=== PATIENT | male | born 1990 | race Caucasian/White ===

== ENCOUNTER 2022-04-23 12:55 | Emergency (ER) | payer BC ==
[~2022-04-23] VITALS: Ht 165.1 cm; Wt 91.0 kg
[2022-04-23 13:50] VITALS: BP 161/88
[2022-04-23] MEDS: IBUPROFEN 400MG TABLET PO ONE (13:50)
[2022-04-23] MEDS: ACETAMINOPHEN 325MG TABLET PO ONE (13:50)
[2022-04-23] MEDS: TETANUS, DIPHTHERIA, PERTUSSIS VAC/PF 0.5ML (>10YR OLD) IM ONE (14:16)
[2022-04-23] MEDS: LIDOCAINE HCL/PF 1% 10 MG/ML 5ML VIAL INFIL ONE (14:17)
[2022-04-23] MEDS ORDERED: CEFAZOLIN SODIUM 1000MG/VIAL IM ONE (18:15)
[2022-04-23] MEDS ORDERED: CEPH500C2 MT (18:28)
[2022-04-23] MEDS ORDERED: IBUP-2028 MT (18:28)
[2022-04-23] MEDS ORDERED: ACET-2708 MT (18:28)
== END 2022-04-23 18:47 | disposition home or self-care (01) ==
LOC: ER 12:55
DX: S67.193A Crushing injury of left middle finger, initial encounter (principal); S67.42XA Crushing injury of left wrist and hand, initial encounter; S62.603A Fracture of unspecified phalanx of left middle finger, initial encounter for closed fracture; X58.XXXA Exposure to other specified factors, initial encounter; Y93.89 Activity, other specified; Y92.89 Other specified places as the place of occurrence of the external cause; Y99.8 Other external cause status
CPT/HCPCS: 73140; 90471; 90715; 99283; J3490; Z7610